=== PATIENT | female | born 2000 | race Caucasian/White ===

== ENCOUNTER 2021-08-15 12:30 | Outpatient (RCR) | payer OTHER, SELFPAY ==
[2021-08-01 12:22] VITALS: BMI 22.4
--- NOTE | 2021-08-01 16:38 | PC.ADMIT ---
Admission Note: 20 year old female self referred for [facility] Crisis evaluation. Patient reports increased depression with SI without intent or plan. Patient reports lack of appetite, lack of motivation, increased anxiety, difficulty completing ADLs. Patient reports hair pulling/plucking with tweezers has increased. Patient has been diagnosed with Trichotillomani. Patient has had auditory hallucinations in past, denies today. Reports they can be negative and derogatory or positive and comforting. Denies hallucinations are command in nature. Patient is currently living with her boyfriend and her 19 yr old sister. Patient's mother and step mother in 2019 and left patient and sister on their own in their current residence. Patient reports difficulty in maintaing household, paying bills, getting food. Patient reports she finished one year of college at [employer] and then had to leave due to mental health and family stressors. Patient reports she would like to finish college some day. Patient is alert and oriented, cooperative and goal oriented. Patient states she has had no in patient admissions and has never attended [facility]. Patient reports daily use of marijuana and occasional drink of one glass of beer or wine. Patient is currently taking no medications. Patient reports she does have a implant control device, procedure done in 2018. Patient gives verbal consent for nursing assessment via telehealth.
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
--- NOTE | 2021-08-03 16:11 | PC.NURSE ---
Case opened in treatment team.
--- NOTE | 2021-08-04 14:59 | PC.NURSE ---
I called and spoke with pt. Reviewed treatment plan and discussed options for aftercare and access to other services (case management/ CSP worker). Pt is in need of help accessing services through the [facility]. She said she's been calling them and leaving messages but has not heard back. I informed her about the possibility of her sister accessing IHT services through [facility] (as pt is over the qualifying age), and it could benefit the whole family. She said she'd talk to her sister about this. Pt will think about whether she wants me to refer her to [facility] or to [facility] for aftercare, and said she'd let me know.
--- NOTE | 2021-08-07 15:30 | P.PNPSP_ITS ---
Subjective Subjective Date of Service: 08/07/21 Reason For Visit: depression,anxiety Medical Problems Affecting Mental Status: No Interim History: Reports ongoing anxiety and depression. States situational stressors have been overwhelming, ?dealing with personal st uff regarding my mom ?. Finding clonidine helpful. Finding olanzapine helpful. No AH. Reduced trichotillomania behaviors. Has started Lamictal, no rash observed. No SI, HI. Reports had SI over weekend, walking to [place]. Called crisis, no longer has SI. Reports that she feels safe. Medication Compliance: Yes Side effects from medications: Yes (Increased appetite) Attending Groups: Yes Review of Systems Acute medical concerns: No Medical Review of Systems: unchanged Review of Systems Review of Systems Yes all other systems are reviewed and are negative Constitutional: Reports no additional constitutional complaints Mental Status Exam Mental Status Exam Narrative: NAD. Anxious mood and affect. Patient Appearance: Well Grooomed and Appropriate Patient Orientation: Person, Place, Time and Situation Level of Consciousness: Appropriate Patient Behavior: Appropriate, Cooperative and Good Eye Contact Mood Description: Depressed and Anxious Affect Description: Depressed and Anxious Patient Cognition Impaired: No Ability to Follow Directions: Good Speech Pattern: Clear, Appropriate and Coherent Memory Description: Intact Delusions: Not Present Thought Process: Intact Thought Content: positive for Obsessional Thoughts and positive for Suicidal Ideation (Had suicidal thoughts over the weekend, called crisis. Denies today.) Depressive Symptoms: Increased Anxiety, Crying Spells, Sleeping More Than Usual, Loss of Int. in Activity, Feelings of Guilt, Unhappiness, Increased Fatigue and Thoughts of /Suicide Judgement: Fair Diagnostics Vital Signs (24Hr): BMI result Body Mass Index 22.4 Assessment & Plan Assessment & Plan (1) Major depressive disorder, recurrent, severe with psychotic symptoms: Status: Acute Code(s): F33.3 - Major depressive disorder, recurrent, severe with psychotic symptoms Assessment and Plan: Reports ongoing anxiety and depression. States situational stressors have been overwhelming, ?dealing with personal stuff regarding my mom ?. Finding clonidine helpful. Has utilized it several times over weekend, with positive affect. Finding olanzapine helpful. No AH. Reduced trichotillomania behaviors. States was able to limited to 15 minutes over weekend. Reports he olanzapine is also helping with sleep. Has started Lamictal, no rash observed. No SI, HI. Reports had SI over weekend, walking to [place]. Called crisis, no longer has SI. Reports that she feels safe. Reports boyfriend has been supportive regarding this. We discussed SI over weekend. Patient has plan in place to call crisis if SI returns. At this time however she states that she is safe, and has no intent or plan to harm herself in any way. (2) SP (generalized anxiety disorder): Status: Acute Code(s): F41.1 - Generalized anxiety disorder (3) Cannabis abuse with physiological dependence: Status: Acute Code(s): F12.20 - Cannabis dependence, uncomplicated Assessment and Plan: Reports did use cannabis several times over weekend, due to discomfort after receiving COVID shot. (4) Trichotillomania: Status: Acute Code(s): F63.3 - Trichotillomania Plan 1. Continue with current [facility] plan of care. 2. Continue with current medication regimen. 3. Follow-up as per protocol. Patient educated on: diagnosis, medication risk/benefits, substance abuse and therapeutic strategies Informed Consent: understands Reason for contiued partial hosp. stay Substantial Risk for: harm to self, inability to function, rapid decompensation and med/psych decompensation Certification I certify that partial hospital treatment is medically necessary due to the symptoms and problems resulting from the patient's mental illness and the failure to treat the patient at the partial hospital level of care would likely result in the patient requiring inpatient psychiatric care which could not be prevented at a less intensive level of care. I spent minutes with the patient and/or on the patient floor today, greater than?50% of which was spent counseling/coordinating care. Discharge Plan Discharge Attending provider: Jose Alvarez Medications: New olanzapine 2.5 mg tablet 2.5 mg PO BEDTIME Qty: 14 0RF lamotrigine [Lamictal] 25 mg tablet 25 mg PO DAILY 14 Days Qty: 14 0RF clonidine HCl 0.1 mg tablet 0.1 mg PO BID PRN (Reason: anxiety) Qty: 14 0RF Telehealth Telehealth Location of provider rendering services: practice address Location of patient: address on file Patient Identification confirmed using: Name, : Yes Telehealth method: video Patient verbally consented to treatment: Yes Patient verbally consented to billing insurance company: Yes Minutes spent on Phone/Video with Pt.: 15
--- NOTE | 2021-08-08 09:27 | PC.NURSE ---
I received a message from pt. She called late last night (08/07/21) and said she is in the [facility] Living Room after having an emotional crisis . She said she is calling to let staff know about this, and that she is soon leaving and will be in [facility] tomorrow (today). Pt is in program today.
--- NOTE | 2021-08-08 09:29 | PC.NURSE ---
I called [facility] central registration to ask about what kind of case management services they offer (CSP?, etc). I spoke to many staff, who transferred me to various different extensions ([phone]). I was first told that [facility] only has an HIV/AIDS program and a program for homeless people only, but then was transferred to Anna [phone]) in the HIV program, who said there is a new other program called [facility], that might be appropriate. I was transferred then to Sherley Devine, a clinician in [facility]. I left a message asking for info and for a call back. Anna said to call her back if I don't get a hold of anyone.
--- NOTE | 2021-08-08 09:53 | PC.NURSE ---
I emailed Mary Angel asking if she knows about the [facility] program at [facility], since pt is 20 and no longer qualifies for the [facility] (in-home wrap around treatment) program.
--- NOTE | 2021-08-08 11:50 | PC.NURSE ---
I called [facility] again asking about the [facility] program. I spoke to Raf, and was told that [facility] doesn't yet know about this program and cannot help. I then called Dylon Carty at [facility] [phone] asking about the CC[facility]. He said he is one of the clinicians in the [facility] program (as I suspected from talking to him in the past). He asked me to call back later today and said he'd help with this.
--- NOTE | 2021-08-08 12:55 | PC.NURSE ---
I spoke to Dylon Carty, director of the [facility] program at [facility], providing wrap-around services including case management. He will talk to central intake and let them know about this program. He said there is a [place] and a [place] location. I then spoke to pt and obtained her permission to refer. I then emailed a completed referral form to [facility].
--- NOTE | 2021-08-15 10:47 | PC.NURSE ---
Patient scheduled for routine discharge today. Patient denied SI, denied any safety issues. Reports, feeling good regarding discharge. Patient reports she will be starting a new job soon. Reviewed patient medications with patient. Reports she accidentally took an extra Olanzapine last night. Medication education provided. Denied any side effects. Patient reports understanding what she is taking regarding medications, amount, and times to take her medications. Patient completed 9 days of treatment. Patient also reports she has a new patient appointment with a PCP at [facility] in [place] in November 2021. Stated she made the appointment herself. Patient also stated she called [facility] as she stated she was told that someone from [facility] made an appointment for her however when she called she did not have an appointment.
--- NOTE | 2021-08-15 15:04 | HO.PHPPROGNO ---
Subjective Subjective Date of Service: 08/15/21 Reason For Visit: depression,anxiety Interim History: Patient presents for last day of [facility]. Denies any issues related to medication regimen, however still at starting dose of lamictal and will need a refill prior to seeing outpatient provider. Has noted increase in appetite since starting Olanzapine. Discussed this as a common side effect for this medication and need for monitoring with outpatient provider. Review of Systems Constitutional: Reports as per [facility] Mental Status Exam Mental Status Exam Narrative: NAD. Anxious mood and affect. Patient Appearance: Well Grooomed and Appropriate Patient Orientation: Person, Place, Time and Situation Level of Consciousness: Appropriate Patient Behavior: Appropriate, Cooperative and Good Eye Contact Mood Description: Anxious Affect Description: Anxious Patient Cognition Impaired: No Ability to Follow Directions: Good Speech Pattern: Clear, Appropriate and Coherent Memory Description: Intact Delusions: Not Present Thought Process: Intact Judgement: Fair Diagnostics Vital Signs (24Hr): BMI result Body Mass Index 22.4 Assessment & Plan Assessment & Plan (1) Major depressive disorder, recurrent, severe with psychotic symptoms: Status: Acute Code(s): F33.3 - Major depressive disorder, recurrent, severe with psychotic symptoms Assessment and Plan: no changes to current regimen will send rx for increase in Lamictal dose and olanzapine for one month until outpatient appt scheduled for September for discharge Certification I certify that partial hospital treatment is medically necessary due to the symptoms and problems resulting from the patient's mental illness and the failure to treat the patient at the partial hospital level of care would likely result in the patient requiring inpatient psychiatric care which could not be prevented at a less intensive level of care. I spent minutes with the patient and/or on the patient floor today, greater than?50% of which was spent counseling/coordinating care. Discharge Plan Discharge Attending provider: Jose Alvarez Additional Instructions: Intake appt, in person, with deanna Hayes at [facility] in [place], [place] on 08/21/21 at 4pm. Initial psychiatric evaluation (1 hour) appointment, over the phone, with med provider Vivi Ferreira from [facility] in [place], [place] on 09/13/21 at 2pm. Follow-up appt (15 minutes) over the phone, with med provider Vivi Ferreira from [facility] in [place], [place] on 10/10/21 at 11:30am. Medications: New olanzapine 2.5 mg tablet 2.5 mg PO BEDTIME Qty: 14 0RF lamotrigine [Lamictal] 25 mg tablet 25 mg PO DAILY 14 Days Qty: 14 0RF clonidine HCl 0.1 mg tablet 0.1 mg PO BID PRN (Reason: anxiety) Qty: 14 0RF Stand Alone Forms: Patient Portal Discharge page Telehealth Telehealth Location of provider rendering services: practice address Location of patient: address on file Patient Identification confirmed using: Name, : Yes Telehealth method: video Patient verbally consented to treatment: Yes Patient verbally consented to billing insurance company: Yes Minutes spent on Phone/Video with Pt.: 15
--- NOTE | 2021-08-22 10:23 | PM.EVENT ---
Event Note Date of Service: 08/22/21 Event Note: medications ordered, including lamictal 50mg X 14 days, then start lamictal 100mg daily, 30-day supply sent. Script for olanzapine 2.5mg at bedtime sent, 30-day supply.
== END 2021-08-15 23:59 | disposition home or self-care (01) ==
LOC: HO.PHPA 12:30
PROVIDERS: Visit Provider Psychiatry & Neurology Psychiatry
DX: F33.3 Major depressive disorder, recurrent, severe with psychotic symptoms (principal); F41.1 Generalized anxiety disorder; F63.3 Trichotillomania; F12.20 Cannabis dependence, uncomplicated; Z79.899 Other long term (current) drug therapy
CPT/HCPCS: 90791; 90853